=== PATIENT | female | born 1945 | race Caucasian/White ===

== ENCOUNTER 2019-03-26 07:10 | Outpatient (CLI) | payer MEDICARE, BC | END 2019-03-26 23:59 | disposition home or self-care (01) | LOC: CFH 07:10 | PROVIDERS: ATTEND Internal Medicine Cardiovascular Disease | DX: I08.3 Combined rheumatic disorders of mitral, aortic and tricuspid valves (principal); I10 Essential (primary) hypertension; E78.5 Hyperlipidemia, unspecified | CPT/HCPCS: 93306 ==

== ENCOUNTER 2019-08-13 11:09 | Day surgery (SDC) | payer MEDICARE, BC ==
[~2019-08-13] VITALS: Ht 167.6 cm; Wt 81.8 kg
[~2019-08-13 11:09] MED LIST: AMLO10TA8 PO; FLUO25PO PO; GABA250S3 PO; SPIR25TA5 PO
[2019-08-13] MEDS ORDERED: SODIUM CHLORIDE 0.9% 1,000 ML IV SCH (11:54)
[2019-08-13] MEDS ORDERED: CEFAZOLIN PMX 1GM/50ML 50 ML IVPB ONE (12:00)
[2019-08-13] MEDS ORDERED: OLME20TA17 PO (12:11)
[2019-08-13] MEDS ORDERED: FLUO40CA9 PO (12:11)
[2019-08-13] MEDS ORDERED: CELE200C PO (12:11)
[2019-08-13] MEDS ORDERED: PRAV20TA2 PO (12:11)
[2019-08-13 12:12] LABS: BASOPHILS # (AUTO) 0.05 x10^3/uL (0-0.1); BASOPHILS % (AUTO) 1 % (0-1); EOSINOPHILS # (AUTO) 0.06 x10^3/uL (0-0.4); EOSINOPHILS % (AUTO) 1 % (1-7); LYMPHOCYTES # (AUTO) 1.38 x10^3/uL (1-3.4); LYMPHOCYTES % (AUTO) 32 % (22-44); MD NO; MEAN CORPUSCULAR HEMOGLOBIN 32.2 pg (27.0-34.8); MEAN CORPUSCULAR HGB CONC 33.3 g/dL (32.4-35.8); MEAN CORPUSCULAR VOLUME 96.8 fL (80-100); MEAN PLATELET VOLUME 9.2 fL (7.4-10.4); MONOCYTES # (AUTO) 0.33 x10^3/uL (0.2-0.8); MONOCYTES % (AUTO) 8 % (2-9); NEUTROPHILS # (AUTO) 2.44 x10^3/uL (1.8-6.8); NEUTROPHILS % (AUTO) 57 % (42-75); PLATELET COUNT 172 x10^3/uL (130-400); RED BLOOD COUNT 4.27 x10^6/uL (3.82-5.3); RED CELL DISTRIBUTION WIDTH 12.7 % (9.6-15.2)
[2019-08-13] MEDS ORDERED: AMLO1TAB80 PO (12:13)
[2019-08-13] MEDS ORDERED: CEFAZOLIN PMX 1GM/50ML 50 ML ONE (12:17)
[2019-08-13] MEDS ORDERED: LIDOCAINE 2%, 20ML ONE (12:17)
[2019-08-13] MEDS ORDERED: MIDAZOLAM 1 MG/ML, 5ML ONE (12:17)
[2019-08-13] MEDS ORDERED: CEFAZOLIN 1,000 MG ONE (12:17)
[2019-08-13] MEDS ORDERED: FENTANYL PF 100 MCG/2ML ONE ×2 (12:17→13:24)
[2019-08-13 12:22] LABS: ANION GAP 6 mmol/L (5-15); CALCIUM 8.7 mg/dL (8.5-10.1); CHLORIDE 110 mmol/L (98-107); CREATININE 0.86 mg/dL (0.55-1.02)
[2019-08-13] MEDS ORDERED: DIPHENHYDRAMINE 50 MG/ML, 1ML ONE (13:24)
== END 2019-08-13 16:03 | disposition home or self-care (01) ==
LOC: CACL 11:09
PROVIDERS: ATTEND Internal Medicine Cardiovascular Disease
DX: Z45.010 Encounter for checking and testing of cardiac pacemaker pulse generator [battery] (principal); I10 Essential (primary) hypertension; E78.2 Mixed hyperlipidemia; Z79.899 Other long term (current) drug therapy; Z91.048 Other nonmedicinal substance allergy status; Z82.49 Family history of ischemic heart disease and other diseases of the circulatory system
CPT/HCPCS: 33228; 36415; 80048; 85025; 99156; 99157; C1785; J0690; J1200; J2250; J3010

== ENCOUNTER 2020-08-31 11:06 | Emergency (ER) | payer MEDICARE, BC ==
[~2020-08-31 11:06] MED LIST changes: +AMLO-211 PO; -AMLO10TA8 PO; +AMLO1TAB80 PO; +CELE200C PO; +FLUO40CA9 PO; +OLME20TA17 PO; +PRAV20TA2 PO
--- NOTE | 2020-08-31 11:06 | NUR ---
BIBA FROM HOME C/O INCR DIZZINESS CAUSING DECR ADL'S X2 DAYS AFTER STARTING TROKENDI; PER EMS FAMILY ALSO REPORTS CONCERN FOR WORSENING DERPRESSION SINCE 'S (SEP 2019), "MIXING MEDS INTO OTHER BOTTLES & OCCAS STATEMENTS 'I DON'T WANT TO LIVE ANYMORE. I SOMETIMES STILL SEE MY '", PT DENIES SI/HI; PT CHANGED INTO GOWN, RESPONDS APPROP TO STAFF, NAD, COMFORT MEASURES PROVIDED, CALL LIGHT WITHIN REACH.
--- NOTE | 2020-08-31 12:01 | NUR ---
PT UPRIGHT ON GURNEY AWAKE & COMFORTABLE, RESPONDS APPROP TO STAFF, ELIDA, SONJAWICK IN PLACE- AWAITING VOID FOR UA SAMPLE, NAD, NO OTHER NEEDS AT THIS TIME, CALL LIGHT WITHIN REACH.
[2020-08-31 12:30] LABS: BASOPHILS % (AUTO) 1 % (0-1); EOSINOPHILS % (AUTO) 1 % (1-7); LYMPHOCYTES % (AUTO) 30 % (22-44); MEAN CORPUSCULAR HEMOGLOBIN 31.3 pg (27.0-34.8); MEAN PLATELET VOLUME 8.8 fL (7.4-10.4); MONOCYTES % (AUTO) 6 % (2-9); NEUTROPHILS % (AUTO) 63 % (42-75); PLATELET COUNT 167 x10^3/uL (130-400); RED BLOOD COUNT 4.35 x10^6/uL (3.82-5.3); RED CELL DISTRIBUTION WIDTH 12.7 % (9.6-15.2)
[2020-08-31 12:39] LABS: MD NO
[2020-08-31 12:43] LABS: ALBUMIN 3.7 g/dL (3.4-5.0); ANION GAP 5 mmol/L (5-15); CALCIUM 9.4 mg/dL (8.5-10.1); CHLORIDE 113 mmol/L (98-107); CREATININE 0.76 mg/dL (0.55-1.02)
[2020-08-31 12:47] LABS: TROPONIN I 0.038 ng/mL (0.000-0.045)
--- NOTE | 2020-08-31 13:00 | NUR ---
PT UPRIGHT GURNEY AWAKE & COMFORTABLE, SW (FIDEL) AT BS, RESPONDS APPROP TO STAFF, NAD, NO NEEDS AT THIS TIME, CALL LIGHT WITHIN REACH.
--- NOTE | 2020-08-31 13:48 | NUR ---
REPORT GIVEN TO MILLICENT AMOR
[2020-08-31 13:51] VITALS: BP 146/48
== END 2020-08-31 14:08 | disposition home or self-care (01) ==
LOC: ED 13:10
DX: R42 Dizziness and giddiness (principal)
CPT/HCPCS: 36415; 80048; 82040; 84484; 85025; 99283

== ENCOUNTER 2021-04-21 09:34 | Emergency (ER) | payer MEDICARE, BC ==
[~2021-04-21] VITALS: Ht 162.6 cm; Wt 86.4 kg
--- NOTE | 2021-04-21 09:48 | NUR ---
BIB EMS FROM [place] FOR C/O DIARRHEA ON/OFF X 1 MONTH. PT STATES SHE DOES HAVE DAYS OF ONE SOFT FORMED BM. PT STATES SHE WAS PLACED ON ABX 1.5 MONTHS AGO FOR UTI AND WAS ALSO RECENTLY PLACED ON ABX FOR DENTAL PROCEDURE. PT STATES SHE IS EXPERIENCING CRAMPING IN HER LOWER ABDOMEN. PT STATES DIARRHEA ON/OFF. TOOK 1/2 PILL OXYCODONE AND 2 IMODIUM PILLS. VS DENTAL MECHANIC HR 80, 95% RA, BP 136/79, BS 123. PT RESTING ON GURNEY. NADN. MONITORS APPLIED. VSS. WARM BLANKET PROVIDED. CALL LIGHT IN REACH. ERP DR. RODRIGUEZ AT BEDSIDE FOR EVAL. PT AWARE OF NEED FOR STOOL SAMPLE. STATES SHE IS UNSURE SHE CAN PROVIDE SAMPLE AT THIS TIME.
--- NOTE | 2021-04-21 10:13 | NUR ---
PT RESTING ON GURNEY. MEJIA. ALLEYS. PT AWARE OF NEED TO PROVIDE STOOL SAMPLE. STATES SHE IS UNSURE IF SHE CAN PROVIDE SAMPLE AT THIS TIME. WILL ATTEMPT AGAIN SHORTLY.
[2021-04-21 10:24] LABS: BASOPHILS % (AUTO) 0 % (0-1); EOSINOPHILS % (AUTO) 0 % (1-7); LYMPHOCYTES % (AUTO) 20 % (22-44); MEAN CORPUSCULAR HEMOGLOBIN 31.5 pg (27.0-34.8); MEAN CORPUSCULAR HGB CONC 33.8 g/dL (32.4-35.8); MEAN PLATELET VOLUME 8.9 fL (7.4-10.4); MONOCYTES % (AUTO) 5 % (2-9); NEUTROPHILS % (AUTO) 74 % (42-75); PLATELET COUNT 172 x10^3/uL (130-400); RED BLOOD COUNT 4.35 x10^6/uL (3.82-5.3); RED CELL DISTRIBUTION WIDTH 12.7 % (9.6-15.2)
[2021-04-21 10:32] LABS: ALANINE AMINOTRANSFERASE 26 U/L (12-78); ALBUMIN 3.4 g/dL (3.4-5.0); ANION GAP 7 mmol/L (5-15); CALCIUM 9.2 mg/dL (8.5-10.1); CHLORIDE 106 mmol/L (98-107); CREATININE 0.66 mg/dL (0.55-1.02)
[2021-04-21 10:42] LABS: ALKALINE PHOSPHATASE 70 U/L (45-117); BILIRUBIN,TOTAL 0.7 mg/dL (0.2-1.0); TOTAL PROTEIN 7.5 g/dL (6.4-8.2)
--- NOTE | 2021-04-21 10:58 | NUR ---
SPOKE W/ ELYSIA FROM [facility] WHO STATES PT HAS DECLINED OVER THE LAST WEEK AND NOW HAS TROUBLE GETTING OUT OF BED AND FEELS PT IS NOT SAFE TO RETURN TO [place] AND HAVE CAREGIVERS COME IN TO CARE FOR PT. ERP DR. RODRIGUEZ NOTIFIED. CASEY JIMENEZ NOTIFIED AND PROVIDED W/ INFORMATION TO SPEAK W/ ELYSIA.
--- NOTE | 2021-04-21 11:03 | NUR ---
PT STATES SHE DOES NOT WALK AT HOME. PT STATES THEY TRANSFER YOU FROM BED TO WC AND WC TO BATHROOM/SHOWER AND BACK TO WC AND BED. PT SITS IN THE CHAIR TO SHOWER. PT FULLY RELAINT. STATES "ONLY ONE OF THE GIRLS IS WILLING TO DO THAT AND THEY'RE SAYING I HAVE DECLINED AND I HAVE SOMEWHAT BUT NOT TO THE POINT WHERE THINGS HAVE CHANGED. I DON'T UNDERSTAND WHY ELYSIA IS SAYING THAT THEY ARE NOT WILLING TO TAKE CARE OF ME". CASEY PLUNKETT NOTIFIED.
[2021-04-21 11:04] VITALS: BP 130/74
--- NOTE | 2021-04-21 11:12 | NUR ---
SPOKE W/ ERP DR. RODRIGUEZ IN REGARDS TO PT AND DISCUSSIION THIS RN HAD W/ PT. PER ERP DR. RODRIGUEZ PT IS STABLE AND IS ABLE TO GO HOME. CASEY JIMENEZ AWARE.
--- NOTE | 2021-04-21 11:16 | NUR ---
ERP DR. RODRIGUEZ AT BEDSIDE FOR RE-EVAL.
--- NOTE | 2021-04-21 11:21 | NUR ---
CASEY JIMENEZ AT BEDSIDE.
== END 2021-04-21 12:07 | disposition home or self-care (01) ==
LOC: ED 12:01
DX: R19.7 Diarrhea, unspecified (principal); R10.9 Unspecified abdominal pain; G89.29 Other chronic pain
CPT/HCPCS: 36415; 80053; 83605; 84443; 85025; 99283